=== PATIENT | male | born 1950 | race Hispanic/Latino ===

== ENCOUNTER → 2019-02-07 | Outpatient (CLI) | payer MEDICARE | END | disposition home or self-care (01) | LOC: OIH 09:26 | PROVIDERS: ATTEND Internal Medicine | DX: M19.042 Primary osteoarthritis, left hand (principal); M19.041 Primary osteoarthritis, right hand; M79.89 Other specified soft tissue disorders; M77.32 Calcaneal spur, left foot; M77.52 Other enthesopathy of left foot and ankle; M77.31 Calcaneal spur, right foot; M77.51 Other enthesopathy of right foot and ankle; I70.90 Unspecified atherosclerosis | CPT/HCPCS: 73130; 73630 ==